=== PATIENT | female | born 1985 | race Caucasian/White ===

== ENCOUNTER 2019-08-31 16:07 | Emergency (ER) | payer SELFPAY ==
[~2019-08-31] VITALS: Ht 175.3 cm; Wt 65.8 kg
[2019-08-31 16:11] VITALS: BP 127/78
--- NOTE | 2019-08-31 16:20 | NUR ---
ED Nurse Note: patient walked into ED from home, reports she came back from [facility] 1 week ago. patient reports coughing. denies fever for 2days. patient placed in a room, mask provided. cxr at bedside.
--- NOTE | 2019-08-31 16:46 | Diagnostic Imaging Report ---
Indication: Dyspnea Comparison: None A single view chest radiograph was obtained. Findings: Cardiomediastinal appearance is within normal limits for age. The lungs are clear. Pulmonary vascularity is appropriate. The diaphragmatic contour is smooth and costophrenic angles are sharp. No pleural effusions are identified. The bones are unremarkable. Impression: No acute findings
--- NOTE | 2019-08-31 17:00 | NUR ---
ED Nurse Note: flu swab sent to lab
--- NOTE | 2019-08-31 17:24 | Emergency Room Report ---
History of Present Illness General Chief Complaint: Upper Respiratory Illness Source: Patient Present Illness HPI 34-year-old female with no segment past medical history here complaining of 2 days of generalized body ache, cough and congestion without any fever. Patient reports that she got back from [place] 1 week ago. Patient reports that she went to [place], and [place]. Denies any abdominal pain, nausea vomiting, lower respiratory symptoms. Denies at this time. Patient walks and patient is putting to an isolation room, wearing a 95 mask. [facility] was contacted, flu swab came back positive for influenza A, chest x-ray within normal limit. After speaking to Griselda Arrington [facility] it was determined that patient is low risk and does not need any further evaluation. Patient is low risk for coronavirus at this time according to the CDC guidelines. Allergies: Coded Allergies: No Known Allergies (Unverified , 08/31/19) Patient History Past Medical History: see triage record Past Surgical History: none Pertinent Family History: none Now: No Immunizations: UTD Reviewed Nursing Documentation: PMH: Agreed; PSxH: Agreed Nursing Documentation-PMH Past Medical History: No Stated History Review of Systems All Other Systems: negative except mentioned in HPI Physical Exam Vital Signs Date Time Temp Pulse Resp B/P (MAP) Pulse Ox O2 Delivery O2 Flow Rate FiO2 08/31/19 16:11 98.4 110 18 127/78 99 Room Air Sp02 EP Interpretation: reviewed, normal General Appearance: no apparent distress, alert, GCS 15, non-toxic Head: normocephalic, atraumatic Eyes: bilateral eye normal inspection, bilateral eye PERRL ENT: hearing grossly normal, normal pharynx, no angioedema, normal voice Neck: full range of motion, supple, thyroid normal, no meningismus, no bony tend, supple/symm/no masses Respiratory: chest non-tender, lungs clear, normal breath sounds, no rhonchi, no respiratory distress, no retraction, no accessory muscle use, no wheezing, speaking full sentences Cardiovascular #1: regular rate, rhythm, no edema, no murmur Gastrointestinal: non tender, soft, no mass Genitourinary: no CVA tenderness Musculoskeletal: back normal, digits/nails normal Neurologic: alert, motor strength/tone normal, oriented x3, sensory intact, responsive, speech normal Psychiatric: judgement/insight normal, memory normal, mood/affect normal, no suicidal/homicidal ideation Skin: no rash, normal color Lymphatic: no adenopathy Medical Decision Making PA Attestation All my diagnosis and treatment plans were reviewed ad discussed with my supervising physician Dr. Haji Diagnostic Impression: Primary Impression: Influenza A ER Course 34-year-old female with no segment past medical history here complaining of 2 days of generalized body ache, cough and congestion without any fever. Patient reports that she got back from [place] 1 week ago. Patient reports that she went to [place], and [place]. Denies any abdominal pain, nausea vomiting, lower respiratory symptoms. Denies at this time. Patient walks and patient is putting to an isolation room, wearing a 95 mask. [facility] was contacted, flu swab came back positive for influenza A, chest x-ray within normal limit. After speaking to Griselda Arrington [facility] it was determined that patient is low risk and does not need any further evaluation. Patient is low risk for coronavirus at this time according to the CDC guidelines. Ddx considered but are not limited to: strep pharyngitis, URI, tonsillitis, peritonsillar abscess, influneza, coronavirus Vital signs: are WNL, pt. is afebrile H&PE are most consistent with: Influenza A ORDERS: Influenza swab, chest x-ray, Tamiflu, guaifenesin ED INTERVENTIONS: None required at this time. DISCHARGE: At this time pt. is stable for d/c to home. Will provide printed patient care instructions, and any necessary prescriptions. Care plan and follow up instructions have been discussed with the patient prior to discharge. Patient to follow primary care provider, take medication as directed, avoid going to be community of people for 1 to 2 days based on CDC recommendations. If worsening symptoms return to the emergency room Chest X-Ray Diagnostic Results Chest X-Ray Diagnostic Results : Chest X-Ray Ordered: Yes # of Views/Limited/Complete: 1 View Indication: Other - Cough EP Interpretation: Yes BECKY Xray: Interpretation reviewed, by supervising MD, and agrees with findings. Interpretation: no consolidation, no effusion, no pneumothorax Impression: No acute disease Electronically Signed by: Angeles Mason PA-C Last Vital Signs Date Time Temp Pulse Resp B/P (MAP) Pulse Ox O2 Delivery O2 Flow Rate FiO2 08/31/19 16:11 98.4 110 18 127/78 (94) 99 Room Air Disposition: HOME, SELF-CARE Condition: Stable Scripts Guaifenesin* (GUAIFENESIN*) 100 Mg/5 Ml Liquid 15 ML ORAL Q6H, #120 ML 0 Refills Prov: Angeles Taylor 08/31/19 Oseltamivir Phosphate (Tamiflu) 75 Mg Capsule 75 MG ORAL TWICE A DAY for 5 Days, #10 CAP Prov: Angeles Taylor 08/31/19 Additional Instructions: Take medication as directed, follow-up with your primary care provider, increase oral hydration, rest and hydrate for a few days and try not to have any contact with large community of people. If worsening symptoms emergency room Angeles Taylor Aug 31, 2019 17:24
[2019-08-31] MEDS ORDERED: GUAIFENESI100 MG/5 M ORAL (17:25)
[2019-08-31] MEDS ORDERED: TAMIFLU75 MG ORAL (17:25)
--- NOTE | 2019-08-31 17:41 | NUR ---
ER DISCHARGE NOTE: Patient is cleared to be discharged per ERMD DR CROFT/LUIZ PENA , pt is aox4, on room air, with stable vital signs. pt was given dc and prescription instructions, pt was able to verbalize understanding, pt id band removed without complications. pt is able to ambulate with steady gait. pt took all belongings.
[2019-08-31 17:42] VITALS: BP 127/78
== END 2019-08-31 17:40 | disposition home or self-care (01) ==
LOC: EMR 17:40
DX: J10.1 Influenza due to other identified influenza virus with other respiratory manifestations (principal)
CPT/HCPCS: 71045; 86710; 99283